=== PATIENT | female | born 1980 | race African-American/Black ===

== ENCOUNTER 2024-10-19 11:30 | Emergency (ER) | payer MEDICAID, OTHER ==
[~2024-10-19] VITALS: Ht 157.5 cm; Wt 79.0 kg
[2024-10-19 11:57] VITALS: O2SAT 100
[2024-10-19 12:40] LABS: BASOPHILS % 1.2 % (0.0-2.0); EOSINOPHILS % 4.4 % (0.0-5.0); HEMATOCRIT. 34.5 % (36.0-48.0); HEMOGLOBIN. 11.2 g/dL (12.0-16.0); LYMPHOCYTES % 15.4 % (20.0-50.0); MEAN CORPUSCULAR HEMOGLOBIN 26.3 pg (28.0-32.0); MEAN CORPUSCULAR HGB CONC 32.6 g/dL (31.0-37.0); MEAN CORPUSCULAR VOLUME 80.5 fL (81.0-99.0); MEAN PLATELET VOLUME 7.6 fl (7.4-10.4); MONOCYTES % 8.5 % (2.0-8.0); NEUTROPHILS % 70.5 % (40.0-76.0); PLATELET 380 x1000/uL (130-400); RED BLOOD CELL COUNT 4.28 mill/uL (4.2-5.4); RED CELL DISTRIBUTION WIDTH 14.5 % (11.6-14.6)
[2024-10-19 12:48] LABS: CHLORIDE 108 mEq/L (98-107); POTASSIUM 3.6 mEq/L (3.5-5.1); SODIUM 142 mEq/L (136-145)
[2024-10-19 12:49] LABS: CALCIUM 9.2 mg/dL (8.7-10.4); CARBON DIOXIDE 29 mEq/L (21-32)
[2024-10-19] MEDS ORDERED: IBUP-2029 MT (12:49)
[2024-10-19] MEDS ORDERED: LIDO700A30 TP (12:49)
[2024-10-19 12:54] LABS: CREATININE 0.8 mg/dL (0.6-1.0); GLUCOSE 102 mg/dL (70-105); UREA NITROGEN BLOOD 8 mg/dL (9-23)
[2024-10-19 12:55] LABS: TROPONIN I HIGH SENSITIVITY 6 ng/L (3.0-34)
[2024-10-19] MEDS: IBUPROFEN 600MG TABLET PO ONE (13:10)
[2024-10-19 13:49] VITALS: TEMP 36.7
[2024-10-19] MEDS ORDERED: NIFE-32 MT (13:54)
[2024-10-19] MEDS: NIFEDIPINE XL 60MG TAB PO ONE (14:12)
[2024-10-19 15:26] VITALS: BP 203/99; PULSE 133; RESP 20; O2SAT 100
== END 2024-10-19 15:28 | disposition home or self-care (01) ==
LOC: ER 11:30
DX: R07.89 Other chest pain (principal); I10 Essential (primary) hypertension; J45.909 Unspecified asthma, uncomplicated; Z98.890 Other specified postprocedural states; Z79.899 Other long term (current) drug therapy
CPT/HCPCS: 36415; 71045; 80048; 84484; 85025; 93005; 99285